=== PATIENT | male | born 1985 | race African-American/Black ===

== ENCOUNTER 2017-06-27 13:30 | Emergency (ER) | payer OTHER | END 2017-06-27 14:26 | disposition left against medical advice (07) | LOC: ER 13:32 | DX: Z53.21 Procedure and treatment not carried out due to patient leaving prior to being seen by health care provider (principal) ==

== ENCOUNTER 2020-06-30 11:24 | Emergency (ER) | payer OTHER ==
[~2020-06-30] VITALS: Ht 170.2 cm; Wt 108.9 kg
--- NOTE | 2020-06-30 11:32 | NUR ---
PT BIBRA AND [employer] C/O OF L INDEX FINGER LACERATION. BLEEDING NOTED. APPLIED PRESSURE DRESSING. VS CHECKED. STABLE. AWAITING MD MELTON.
[2020-06-30] MEDS ORDERED: LIDOCAINE 1%-EPI 1:100,000 20 ML VIAL ONE (11:53)
--- NOTE | 2020-06-30 11:57 | NUR ---
DR. CRAWLEY AT BEDSIDE FOR SUTURING
[2020-06-30] MEDS ORDERED: LIDOCAINE 1%-EPI 1:100,000 50 ML VIAL IJ ONE (12:00)
--- NOTE | 2020-06-30 12:14 | NUR ---
Patient discharged [employer] custody in stable condition. Written and verbal after care instructions given. Patient verbalizes understanding of instruction.
[2020-06-30 12:15] VITALS: BP 127/88
== END 2020-06-30 12:15 ==
LOC: ER 11:31
DX: S61.211A Laceration without foreign body of left index finger without damage to nail, initial encounter (principal); I10 Essential (primary) hypertension; S60.512A Abrasion of left hand, initial encounter; X58.XXXA Exposure to other specified factors, initial encounter; Y93.89 Activity, other specified; Y92.89 Other specified places as the place of occurrence of the external cause; Y99.8 Other external cause status
CPT/HCPCS: 12001; 99283; A6403; J3490 ×2